=== PATIENT | male | born 1965 | race Caucasian/White ===

== ENCOUNTER 2022-05-18 10:32 | Emergency (ER) | payer OTHER, MEDICARE ==
[~2022-05-18] VITALS: Ht 165.1 cm; Wt 48.5 kg
[2022-05-18 10:40] VITALS: BP_SYST 86
--- NOTE | 2022-05-18 10:43 | NUR ---
Placed in room 03 . Placed on panel monitor, blood pressure machine and pulse oximeter. To gown for exam. Side rails up. Report given to GARRISON SOTO.
--- NOTE | 2022-05-18 10:55 | NUR ---
patient from home c/o diarhea for the last week, was in dialysis yesterday with low b/p and high b/s by f/s at home, place on still tender, will continue to monitor.
[2022-05-18] MEDS ORDERED: ONDANSETRON HCL 4 MG/2 ML VIAL IVP ONE (11:00)
[2022-05-18] MEDS ORDERED: NACL 0.9% 1,000 ML IV ONE (11:00)
--- NOTE | 2022-05-18 11:00 | NUR ---
edp at bedside for initial assessment with order roxy out.
--- NOTE | 2022-05-18 11:22 | NUR ---
patient taken to ct scan.
[2022-05-18 11:23] LABS: BASOPHILS % (AUTO) 0.7 % (0.0-2.0); EOSINOPHILS % (AUTO) 0.3 % (0.0-4.0); HEMATOCRIT 36.5 % (36-54); HEMOGLOBIN 11.9 g/dL (14.0-18.0); LYMPHOCYTES # (AUTO) 1.2 K/uL (1.0-5.5); LYMPHOCYTES % (AUTO) 23.1 % (20.5-51.5); MEAN CORPUSCULAR HEMOGLOBIN 31 pg (27-31); MEAN CORPUSCULAR HGB CONC 33 % (32-36); MEAN CORPUSCULAR VOLUME 96 fL (79.0-98.0); MONOCYTES # (AUTO) 0.4 K/uL (0.0-1.0); MONOCYTES % (AUTO) 6.8 % (1.7-9.3); NEUTROPHILS # (AUTO) 3.6 K/uL (1.8-7.7); NEUTROPHILS % (AUTO) 69.1 % (40.0-70.0); PLATELET COUNT (AUTO) 114 K/uL (130-430); RED BLOOD CELL COUNT(AUTO) 3.81 MIL/uL (4.2-6.2); RED CELL DISTRIBUTION WIDTH 18.2 % (9.0-15.0); WHITE BLOOD COUNT (AUTO) 5.2 K/uL (4.8-10.8)
[2022-05-18 11:36] LABS: CALCIUM 8.8 mg/dL (8.4-11.0); CREATININE 4.89 mg/dL (0.55-1.30)
[2022-05-18 11:40] LABS: TOTAL BILIRUBIN 0.7 mg/dL (0.0-1.0)
--- NOTE | 2022-05-18 12:35 | NUR ---
new patel #16 inserted tolerated well.
[2022-05-18 12:55] LABS: BILIRUBIN,URINE NEGATIVE (NEGATIVE); BLOOD, URINE 3+ (NEGATIVE); CLARITY/URINE TURBID (CLEAR); COLOR,URINE YELLOW (YELLOW); GLUCOSE,URINE NEGATIVE (NEGATIVE); KETONES,URINE TRACE (NEGATIVE); LEUKOCYTE ESTERASE ,URINE 3+ (NEGATIVE); NITRITE, URINE NEGATIVE (NEGATIVE); PH,URINE 6.5 (5.0-8.0); PROTEIN URINE 4+ (NEGATIVE); UROBILINOGEN,URINE 0.2 (0.2-1.0)
[2022-05-18 12:56] LABS: BACTERIA,URINE MANY /HPF (None Seen); RBC,URINE >100 /HPF (0-3); WBC,URINE >100 /HPF (0-3)
[2022-05-18] MEDS ORDERED: SSNOVOLOG SUBCUT (13:25)
--- NOTE | 2022-05-18 13:28 | NUR ---
EDP SPOKE TO [facility] REGARDING PATIENT STATUS FOR TRANSFER OR ADMISSION.
[2022-05-18] MEDS ORDERED: cefTRIAXone 1 GM IVPB PREMIX 50 ML IV ONE (13:30)
--- NOTE | 2022-05-18 14:59 | NUR ---
PT WILL BE GOING TO [facility] VIA BLS TRANSPORT. ACCEPTING PHYSICIAN IS Montserrat HUTSON. NUMBER FOR REPORT IS [phone]. ETA FOR [facility]NAGER [facility]AT[facility] IS 1600 WITH [facility].
--- NOTE | 2022-05-18 15:34 | NUR ---
REPORT GIVEN TO WOLF KEYES
--- NOTE | 2022-05-18 16:30 | NUR ---
2ND BOWEL MOVEMENT AND CLEANS.
[2022-05-18 16:43] VITALS: BP_SYST 108
--- NOTE | 2022-05-18 16:46 | NUR ---
Patient to be transferred to [facility]. Is being transferred due to higher level of care. Receiving facility has accepting physician and available space. ER physician has signed transfer form. Patient or responsible republican has agreed to transfer and signed form. Patient belongings inventoried and will be sent with patient. Copy of nursing notes, lab reports, EKG, Physicians Orders and X-rays to be sent with patient. Report called to RAHAT JI at receiving facility. Receiving physician is ERICKA. [facility] ambulance service has been called for transfer. ETA is 1600.
== END 2022-05-18 16:43 | disposition short-term general hospital (02) ==
LOC: SED 10:32
DX: N39.0 Urinary tract infection, site not specified (principal); K56.609 Unspecified intestinal obstruction, unspecified as to partial versus complete obstruction; R11.2 Nausea with vomiting, unspecified; I12.9 Hypertensive chronic kidney disease with stage 1 through stage 4 chronic kidney disease, or unspecified chronic kidney disease; N18.9 Chronic kidney disease, unspecified; R19.7 Diarrhea, unspecified; T83.098A Other mechanical complication of other urinary catheter, initial encounter; Z79.4 Long term (current) use of insulin; Z79.899 Other long term (current) drug therapy; Z20.822 Contact with and (suspected) exposure to COVID-19
CPT/HCPCS: 99285; 74176; 96365; 96361; 96375; 87426; 80053; 81000; 82962; 83690; 85025; 87040; 87086; 36415; 76376; J0696; J2405; J7030

== ENCOUNTER 2022-07-21 14:47 | Emergency (ER) | payer MEDICARE, OTHER ==
[~2022-07-21] VITALS: Ht 162.6 cm; Wt 49.9 kg
[~2022-07-21 14:47] MED LIST: SSNOVOLOG SUBCUT
[2022-07-21 15:00] VITALS: BP_SYST 130
[2022-07-21] MEDS ORDERED: ACETAMINOPHEN 500 MG TABLET PO ONE (15:45)
[2022-07-21] MEDS ORDERED: ONDANSETRON 4 MG ODT TAB PO ONE (15:45)
[2022-07-21 16:36] LABS: BILIRUBIN,URINE NEGATIVE (NEGATIVE); BLOOD, URINE 3+ (NEGATIVE); CLARITY/URINE CLOUDY (CLEAR); COLOR,URINE YELLOW (YELLOW); GLUCOSE,URINE 3+ (NEGATIVE); KETONES,URINE NEGATIVE (NEGATIVE); LEUKOCYTE ESTERASE ,URINE 3+ (NEGATIVE); NITRITE, URINE NEGATIVE (NEGATIVE); PROTEIN URINE 2+ (NEGATIVE); UROBILINOGEN,URINE 0.2 (0.2-1.0)
[2022-07-21 16:44] LABS: BASOPHILS # (AUTO) 0.1 K/uL (0.0-0.2); BASOPHILS % (AUTO) 1.2 % (0.0-2.0); EOSINOPHILS # (AUTO) 0.3 K/uL (0.0-0.4); EOSINOPHILS % (AUTO) 3.4 % (0.0-4.0); HEMATOCRIT 34.3 % (36-54); HEMOGLOBIN 11.4 g/dL (14.0-18.0); LYMPHOCYTES # (AUTO) 1.4 K/uL (1.0-5.5); LYMPHOCYTES % (AUTO) 17.4 % (20.5-51.5); MEAN CORPUSCULAR HEMOGLOBIN 33 pg (27-31); MEAN CORPUSCULAR HGB CONC 33 % (32-36); MEAN CORPUSCULAR VOLUME 98 fL (79.0-98.0); MONOCYTES # (AUTO) 0.6 K/uL (0.0-1.0); MONOCYTES % (AUTO) 7.2 % (1.7-9.3); NEUTROPHILS # (AUTO) 5.7 K/uL (1.8-7.7); NEUTROPHILS % (AUTO) 70.8 % (40.0-70.0); PLATELET COUNT (AUTO) 122 K/uL (130-430); RED BLOOD CELL COUNT(AUTO) 3.51 MIL/uL (4.2-6.2); WHITE BLOOD COUNT (AUTO) 8.1 K/uL (4.8-10.8)
[2022-07-21 16:46] LABS: ANION GAP 7 (5-15); CALCIUM 8.2 mg/dL (8.4-11.0); CHLORIDE 96 mmol/L (98-107); CREATININE 2.74 mg/dL (0.55-1.30); GFR AFRICAN AMERICAN 31 mL/min (>90); GLUCOSE 230 mg/dL (70-99); UREA NITROGEN, BLOOD 21 mg/dL (8-21)
[2022-07-21 16:48] LABS: RBC,URINE 20-50 /HPF (0-3); WBC,URINE >100 /HPF (0-3)
[2022-07-21 16:49] LABS: BACTERIA,URINE MODERATE /HPF (None Seen); MUCUS,URINE None Seen /LPF (None Seen)
[2022-07-21 16:53] LABS: ALANINE AMINOTRANSFERASE 128 U/L (12-78); ALBUMIN 3.2 g/dL (3.4-4.8); ASPARTATE AMINOTRANSFERASE 67 U/L (10-37); PHOSPHORUS 3.4 mg/dL (2.7-4.5); TOTAL BILIRUBIN 0.4 mg/dL (0.0-1.0)
[2022-07-21] MEDS ORDERED: cefTRIAXone 1 GM IVPB PREMIX 50 ML IV ONE (18:00)
[2022-07-21] MEDS ORDERED: CIPR500T5 PO (19:28)
[2022-07-21] MEDS ORDERED: ACET-2634 PO (19:28)
[2022-07-21] MEDS ORDERED: ONDA-8 TL (19:28)
[2022-07-21 22:26] VITALS: BP_SYST 130
== END 2022-07-21 22:26 | disposition home or self-care (01) ==
LOC: SED 14:47
DX: E11.22 Type 2 diabetes mellitus with diabetic chronic kidney disease (principal); R11.2 Nausea with vomiting, unspecified; R53.1 Weakness; I10 Essential (primary) hypertension; Z79.899 Other long term (current) drug therapy; Z20.822 Contact with and (suspected) exposure to COVID-19
CPT/HCPCS: 99285; 96365; 71045; 87426; 80053; 81000; 83880; 83735; 84100; 85025; 87086; 84484; 36415; 93005; J0696

== ENCOUNTER 2022-08-24 12:14 | Emergency (ER) | payer MEDICARE, OTHER ==
[~2022-08-24] VITALS: Ht 165.1 cm; Wt 49.9 kg
[~2022-08-24 12:14] MED LIST changes: +ACET-2634 PO; +CIPR500T5 PO; +ONDA-8 TL
[2022-08-24 12:26] VITALS: BP_SYST 134
[2022-08-24 12:56] LABS: BASOPHILS # (AUTO) 0.1 K/uL (0.0-0.2); BASOPHILS % (AUTO) 1.3 % (0.0-2.0); EOSINOPHILS # (AUTO) 0.1 K/uL (0.0-0.4); HEMATOCRIT 35.1 % (36-54); HEMOGLOBIN 11.5 g/dL (14.0-18.0); LYMPHOCYTES # (AUTO) 1.1 K/uL (1.0-5.5); LYMPHOCYTES % (AUTO) 14.2 % (20.5-51.5); MEAN CORPUSCULAR HEMOGLOBIN 31 pg (27-31); MEAN CORPUSCULAR HGB CONC 33 % (32-36); MEAN CORPUSCULAR VOLUME 96 fL (79.0-98.0); MONOCYTES # (AUTO) 0.6 K/uL (0.0-1.0); NEUTROPHILS # (AUTO) 5.7 K/uL (1.8-7.7); NEUTROPHILS % (AUTO) 74.5 % (40.0-70.0); PLATELET COUNT (AUTO) 227 K/uL (130-430); RED BLOOD CELL COUNT(AUTO) 3.65 MIL/uL (4.2-6.2); RED CELL DISTRIBUTION WIDTH 15.6 % (9.0-15.0); WHITE BLOOD COUNT (AUTO) 7.6 K/uL (4.8-10.8)
[2022-08-24 13:11] LABS: ANION GAP 13 (5-15); CALCIUM 7.4 mg/dL (8.4-11.0); CHLORIDE 101 mmol/L (98-107); CREATININE 4.11 mg/dL (0.55-1.30); GFR AFRICAN AMERICAN 20 mL/min (>90); GLUCOSE 155 mg/dL (70-99); UREA NITROGEN, BLOOD 40 mg/dL (8-21)
[2022-08-24 13:16] LABS: CLARITY/URINE TURBID (CLEAR); COLOR,URINE YELLOW (YELLOW); PH,URINE 6.5 (5.0-8.0)
[2022-08-24 13:17] LABS: BILIRUBIN,URINE NEGATIVE (NEGATIVE); BLOOD, URINE 2+ (NEGATIVE); GLUCOSE,URINE 3+ (NEGATIVE); KETONES,URINE NEGATIVE (NEGATIVE); LEUKOCYTE ESTERASE ,URINE 2+ (NEGATIVE); NITRITE, URINE POSITIVE (NEGATIVE); PROTEIN URINE 3+ (NEGATIVE); UROBILINOGEN,URINE 0.2 (0.2-1.0)
[2022-08-24 13:26] LABS: RBC,URINE >100 /HPF (0-3); WBC,URINE >100 /HPF (0-3)
[2022-08-24 13:27] LABS: BACTERIA,URINE MANY /HPF (None Seen)
[2022-08-24 13:27] LABS: ALANINE AMINOTRANSFERASE 141 U/L (12-78); ALBUMIN 3.5 g/dL (3.4-4.8); ASPARTATE AMINOTRANSFERASE 74 U/L (10-37); TOTAL BILIRUBIN 0.3 mg/dL (0.0-1.0)
[2022-08-24] MEDS ORDERED: cefTRIAXone 1 GM in LIDOCAINE 1%, 20 ML MDV 2.1 ML IM ONE (13:30)
[2022-08-24 13:37] LABS: ACETONE, SERUM NEGATIVE (NEGATIVE)
[2022-08-24] MEDS ORDERED: NITR-85 PO (13:43)
[2022-08-24 14:37] VITALS: BP_SYST 136
== END 2022-08-24 14:35 | disposition home or self-care (01) ==
LOC: SED 12:14
DX: N39.0 Urinary tract infection, site not specified (principal); R53.1 Weakness; E11.649 Type 2 diabetes mellitus with hypoglycemia without coma; E16.2 Hypoglycemia, unspecified; I10 Essential (primary) hypertension; Z79.899 Other long term (current) drug therapy
CPT/HCPCS: 99285; 96374; 71045; 80053; 81000; 82009; 82550; 85025; 87086; 84484; 36415; 93005; 83605; J0696; J2001

== ENCOUNTER 2022-09-05 10:38 | Emergency (ER) | payer MEDICARE, OTHER ==
[~2022-09-05] VITALS: Ht 162.6 cm; Wt 49.9 kg
[~2022-09-05 10:38] MED LIST changes: +NITR-85 PO
[2022-09-05 10:40] VITALS: BP_SYST 143
[2022-09-05 11:13] LABS: HEMATOCRIT 37.3 % (36-54); MEAN CORPUSCULAR HEMOGLOBIN 31 pg (27-31); MEAN CORPUSCULAR HGB CONC 32 % (32-36); MEAN CORPUSCULAR VOLUME 96 fL (79.0-98.0); PLATELET COUNT (AUTO) 173 K/uL (130-430); RED BLOOD CELL COUNT(AUTO) 3.88 MIL/uL (4.2-6.2); RED CELL DISTRIBUTION WIDTH 16.1 % (9.0-15.0); WHITE BLOOD COUNT (AUTO) 6.2 K/uL (4.8-10.8)
[2022-09-05 11:28] LABS: CALCIUM 7.5 mg/dL (8.4-11.0); CREATININE 3.74 mg/dL (0.55-1.30)
[2022-09-05 11:35] LABS: ALBUMIN 3.5 g/dL (3.4-4.8); TOTAL BILIRUBIN 0.3 mg/dL (0.0-1.0)
[2022-09-05 11:45] LABS: BILIRUBIN,URINE NEGATIVE (NEGATIVE); BLOOD, URINE 2+ (NEGATIVE); CLARITY/URINE CLOUDY (CLEAR); COLOR,URINE YELLOW (YELLOW); GLUCOSE,URINE 3+ (NEGATIVE); KETONES,URINE NEGATIVE (NEGATIVE); LEUKOCYTE ESTERASE ,URINE 2+ (NEGATIVE); NITRITE, URINE NEGATIVE (NEGATIVE); PROTEIN URINE 2+ (NEGATIVE); UROBILINOGEN,URINE 0.2 (0.2-1.0)
[2022-09-05 11:58] LABS: BASOPHILS % (MANUAL) 0 % (0-2); EOSINOPHILS % (MANUAL) 9 % (0-7); LYMPHOCYTES % (MANUAL) 35 % (20-46); MONOCYTES % (MANUAL) 12 % (0-11)
[2022-09-05 12:02] LABS: BACTERIA,URINE FEW /HPF (None Seen); RBC,URINE 20-50 /HPF (0-3); WBC,URINE >100 /HPF (0-3)
[2022-09-05 13:15] VITALS: BP_SYST 143
== END 2022-09-05 14:06 | disposition home or self-care (01) ==
LOC: SED 10:38
DX: E11.649 Type 2 diabetes mellitus with hypoglycemia without coma (principal); I10 Essential (primary) hypertension; Z79.899 Other long term (current) drug therapy
CPT/HCPCS: 36415; 71045; 80053; 81000; 82962; 85007; 85027; 87086; 93005; 99285

== ENCOUNTER 2022-09-29 09:54 | Emergency (ER) | payer MEDICARE, OTHER ==
[~2022-09-29] VITALS: Ht 162.6 cm; Wt 52.2 kg
--- NOTE | 2022-09-29 10:00 | NUR ---
PT BIBA AWAKE AND ALERT AOX4, NO SOB. PT C/O GENWEAK SINCE THURSDAY AFTER HIS DIAYLSIS. PT HAS AN APPONTMENT TODAY FOR DIAYYSIS BUT MISSED IT AT 1000. PT C/O HEAD, BLURRY VISION. PT DENIES N/V. PT HAS HX OF CKD, HTN. HLD, DM2.
--- NOTE | 2022-09-29 10:01 | NUR ---
MD DR ROBERTSON AT BEDSIDE
[2022-09-29] MEDS ORDERED: ASPIRIN 81 MG TAB.CHEW PO ONE (10:15)
--- NOTE | 2022-09-29 10:24 | NUR ---
COVID AND INFLUENZA SWABS COLLECTED AND SENT TO LAB.
[2022-09-29 11:01] VITALS: BP_SYST 131
[2022-09-29 11:08] LABS: BASOPHILS # (AUTO) 0.1 K/uL (0.0-0.2); EOSINOPHILS # (AUTO) 0.2 K/uL (0.0-0.4); EOSINOPHILS % (AUTO) 1.3 % (0.0-4.0); HEMATOCRIT 34.4 % (36-54); HEMOGLOBIN 11.3 g/dL (14.0-18.0); MEAN CORPUSCULAR HEMOGLOBIN 32 pg (27-31); MEAN CORPUSCULAR HGB CONC 33 % (32-36); MEAN CORPUSCULAR VOLUME 96 fL (79.0-98.0); MONOCYTES # (AUTO) 1.1 K/uL (0.0-1.0); MONOCYTES % (AUTO) 8.6 % (1.7-9.3); NEUTROPHILS # (AUTO) 9.8 K/uL (1.8-7.7); NEUTROPHILS % (AUTO) 74.1 % (40.0-70.0); PLATELET COUNT (AUTO) 160 K/uL (130-430); RED BLOOD CELL COUNT(AUTO) 3.59 MIL/uL (4.2-6.2); RED CELL DISTRIBUTION WIDTH 15.6 % (9.0-15.0); WHITE BLOOD COUNT (AUTO) 13.3 K/uL (4.8-10.8)
[2022-09-29 11:16] LABS: ANION GAP 12 (5-15); CALCIUM 7.4 mg/dL (8.4-11.0); CHLORIDE 97 mmol/L (98-107); CREATININE 4.97 mg/dL (0.55-1.30); GFR AFRICAN AMERICAN 16 mL/min (>90); GLUCOSE 108 mg/dL (70-99); UREA NITROGEN, BLOOD 57 mg/dL (8-21)
[2022-09-29 11:24] LABS: ALANINE AMINOTRANSFERASE 77 U/L (12-78); ALBUMIN 3.4 g/dL (3.4-4.8); ASPARTATE AMINOTRANSFERASE 44 U/L (10-37); TOTAL BILIRUBIN 0.4 mg/dL (0.0-1.0)
[2022-09-29] MEDS ORDERED: cefTRIAXone 1 GM IVPB PREMIX 50 ML IV ONE (12:30)
--- NOTE | 2022-09-29 13:10 | NUR ---
Spoke with patient at this time. Patient was changed after having a very large, brandon collored BM at this time.
--- NOTE | 2022-09-29 13:35 | NUR ---
Patient sleeping at this time. MD awaiting ultrasound results before re evaluating patient for final disposition.
--- NOTE | 2022-09-29 14:12 | NUR ---
Patient had additional labs drawn and urine was taken to the lab at this time by GARRISON KRAUS.
[2022-09-29 14:29] LABS: BILIRUBIN,URINE NEGATIVE (NEGATIVE); BLOOD, URINE 2+ (NEGATIVE); CLARITY/URINE CLOUDY (CLEAR); COLOR,URINE YELLOW (YELLOW); GLUCOSE,URINE 1+ (NEGATIVE); KETONES,URINE NEGATIVE (NEGATIVE); LEUKOCYTE ESTERASE ,URINE 3+ (NEGATIVE); NITRITE, URINE NEGATIVE (NEGATIVE); PROTEIN URINE 2+ (NEGATIVE); UROBILINOGEN,URINE 0.2 (0.2-1.0)
[2022-09-29 14:43] LABS: BACTERIA,URINE MODERATE /HPF (None Seen); MUCUS,URINE None Seen /LPF (None Seen); RBC,URINE 0-3 /HPF (0-3); WBC,URINE >100 /HPF (0-3)
[2022-09-29 16:10] VITALS: BP_SYST 173
--- NOTE | 2022-09-29 16:14 | NUR ---
Patient to be transferred to [facility]. Is being transferred due to higher level of care. Receiving facility has accepting physician, Dr. Witt and available space. ER physician has signed transfer form. Patient or responsible constitution party has agreed to transfer and signed form. Patient belongings inventoried and will be sent with patient. Copy of nursing notes, lab reports, EKG, Physicians Orders and X-rays to be sent with patient. Report called to GARRISON Uribe at receiving facility in ED. Receiving physician is Dr. Stanislav Witt. [facility] ambulance service has been called for transfer. ETA is 1615 and Jojo was made aware of the ambulances departure time.
== END 2022-09-29 16:14 | disposition short-term general hospital (02) ==
LOC: SED 09:54
DX: R53.1 Weakness (principal); I13.2 Hypertensive heart and chronic kidney disease with heart failure and with stage 5 chronic kidney disease, or end stage renal disease; E11.22 Type 2 diabetes mellitus with diabetic chronic kidney disease; N18.6 End stage renal disease; D72.829 Elevated white blood cell count, unspecified; Z79.899 Other long term (current) drug therapy; Z20.822 Contact with and (suspected) exposure to COVID-19
CPT/HCPCS: 99285; 96365; 71045; 87426; 80053; 81000; 83880; 85025; 87040; 87086; 84484; 36415; 93005; 83605; 87804 ×2; J0696

== ENCOUNTER 2022-10-18 16:17 | Emergency (ER) | payer MEDICARE, OTHER ==
[~2022-10-18] VITALS: Ht 165.1 cm; Wt 68.0 kg
--- NOTE | 2022-10-18 16:17 | NUR ---
RECEIVED PT FROM ARI JI. PT ADY ACLYu FOR ALOC. PT WAS UP COOKING LUNCH AT APPROX 12:00 IS LAST KNOWN WELL TIME. PT RESPONDS SOME VERBAL COMMANDS, MOANS AND REPOSITIONS. PERRL. RESP E/U. ON R/A O2 SAT 98%. RESP SHALLOW, UNLABORED. TELEMONITOR SHOWS SINUS TOMA, HR IN THE 50S. ABDOMEN SOFT, NONTENDER, PT INCONTINENT WITH DIAPER PRESENT. PT HAS LEFT UPPER CHEST PORTACATH IN PLACE COVERED WITH CDI DRESSING. RIGHT LOWER LEG IN CAST. SIDERAILS UP X2.
--- NOTE | 2022-10-18 16:25 | NUR ---
EKG OBTAINED, URINE, RASHEL OBTAINED AND TAKEN TO LAB.
[2022-10-18 16:27] VITALS: BP_SYST 115
[2022-10-18] MEDS ORDERED: ONDANSETRON HCL 4 MG/2 ML VIAL IVP ONE (16:30)
[2022-10-18] MEDS ORDERED: DEXTROSE 50% JECT 50 ML DISP.SYRIN IVP ONE (16:30)
--- NOTE | 2022-10-18 16:30 | NUR ---
# 20 gauge angiocath placed to RAC. Use of asceptic technique. Opsite placed over site. Blood return noted. Blood for lab drawn from site. Flushed with 10 cc of normal saline. No evidence of infiltration noted. Patient tolerated well.
--- NOTE | 2022-10-18 16:30 | NUR ---
BS 78 D50 IVP GIVEN. ZOFRAN 4MG IVP GIVEN.
--- NOTE | 2022-10-18 16:37 | NUR ---
D50 IVP GIVEN FOR BS 78. ZOFRAN 4MG IVP GIVEN.
[2022-10-18 16:40] LABS: BILIRUBIN,URINE NEGATIVE (NEGATIVE); BLOOD, URINE 2+ (NEGATIVE); CLARITY/URINE CLEAR (CLEAR); COLOR,URINE YELLOW (YELLOW); GLUCOSE,URINE 2+ (NEGATIVE); KETONES,URINE NEGATIVE (NEGATIVE); NITRITE, URINE NEGATIVE (NEGATIVE); PROTEIN URINE 2+ (NEGATIVE); UROBILINOGEN,URINE 0.2 (0.2-1.0)
[2022-10-18 16:48] LABS: LEUKOCYTE ESTERASE ,URINE 1+ (NEGATIVE)
[2022-10-18 16:49] LABS: BACTERIA,URINE FEW /HPF (None Seen); MUCUS,URINE None Seen /LPF (None Seen); RBC,URINE 0-3 /HPF (0-3)
[2022-10-18 16:59] LABS: ANION GAP 14 (5-15); CALCIUM 7.6 mg/dL (8.4-11.0); CHLORIDE 98 mmol/L (98-107); CREATININE 3.36 mg/dL (0.55-1.30); GFR AFRICAN AMERICAN 25 mL/min (>90); GLUCOSE 80 mg/dL (70-99); UREA NITROGEN, BLOOD 45 mg/dL (8-21)
--- NOTE | 2022-10-18 17:00 | NUR ---
# 20 gauge angiocath placed to LFA. Use of asceptic technique. Opsite placed over site. Blood return noted. Flushed with 10 cc of normal saline. No evidence of infiltration noted. Patient tolerated well.
[2022-10-18 17:13] LABS: ALANINE AMINOTRANSFERASE 107 U/L (12-78); ALBUMIN 3.7 g/dL (3.4-4.8); ASPARTATE AMINOTRANSFERASE 48 U/L (10-37); INR 1.1 (0.80-1.20); PROTHROMBIN TIME 11.1 SECS (9.5-12.5); THYROID STIMULATING HORMONE 4.76 uIu/mL (0.34-4.82); TOTAL BILIRUBIN 0.3 mg/dL (0.0-1.0)
[2022-10-18] MEDS ORDERED: cefTRIAXone 1 GM in D5W 50 ML IV ONE (17:15)
[2022-10-18 17:22] LABS: ALCOHOL, BLOOD < 3 mg/dL (<10)
[2022-10-18 17:29] LABS: BASOPHILS # (AUTO) 0.1 K/uL (0.0-0.2); EOSINOPHILS % (AUTO) 0.6 % (0.0-4.0); HEMATOCRIT 32.3 % (36-54); HEMOGLOBIN 10.7 g/dL (14.0-18.0); LYMPHOCYTES # (AUTO) 0.8 K/uL (1.0-5.5); LYMPHOCYTES % (AUTO) 10.9 % (20.5-51.5); MEAN CORPUSCULAR HEMOGLOBIN 33 pg (27-31); MEAN CORPUSCULAR HGB CONC 33 % (32-36); MEAN CORPUSCULAR VOLUME 99 fL (79.0-98.0); MONOCYTES # (AUTO) 0.3 K/uL (0.0-1.0); MONOCYTES % (AUTO) 4.4 % (1.7-9.3); NEUTROPHILS # (AUTO) 5.8 K/uL (1.8-7.7); NEUTROPHILS % (AUTO) 83.1 % (40.0-70.0); PLATELET COUNT (AUTO) 116 K/uL (130-430); RED BLOOD CELL COUNT(AUTO) 3.27 MIL/uL (4.2-6.2); RED CELL DISTRIBUTION WIDTH 15.4 % (9.0-15.0)
[2022-10-18] MEDS ORDERED: cefTRIAXone 1 GM VIAL ONE ×2 (17:29→17:32)
[2022-10-18] MEDS ORDERED: CALCIUM GLUC 1 GM/100ML-NACL 100 ML IV ONE (17:30)
--- NOTE | 2022-10-18 17:38 | NUR ---
CULTURES OBTAINED ROCEPHIN 1GM IVPB INITIATED, CALCIUM GLOCONATE IVPB INITIATED. PT RESPONSIVE AT THIS TIME, ABLE TO SPEAK AND FOLLOW COMMANDS.
[2022-10-18] MEDS ORDERED: ATOR40TA68 PO (17:46)
[2022-10-18] MEDS ORDERED: CALC667C4 PO (17:46)
[2022-10-18] MEDS ORDERED: HYDR2TAB7 PO (17:46)
[2022-10-18] MEDS ORDERED: AMLO5TAB92 PO (17:46)
[2022-10-18] MEDS ORDERED: FURO80TA3 PO (17:46)
[2022-10-18] MEDS ORDERED: GABA-529 PO (17:46)
[2022-10-18] MEDS ORDERED: HYDR-3917 PO (17:46)
[2022-10-18] MEDS ORDERED: ERGO1250 PO (17:46)
[2022-10-18 17:56] LABS: BARBITURATE, URINE NEGATIVE (NEG <=200); BENZODIAZEPINE, URINE NEGATIVE (NEG <=150); CANNABINOID, URINE NEGATIVE (NEG <=50); COCAINE, URINE NEGATIVE (NEG <=150); METHAMPHETAMINES SCREEN,URINE NEGATIVE (NEG <=500); OPIATE, URINE POSITIVE (NEG <=100); PHENCYCLIDINE SCREEN,URINE NEGATIVE (NEG <=25); UR TRICYCLIC ANTIDEPRESSANTS NEGATIVE (NEG <=300); URINE AMPHETAMINE NEGATIVE (NEG <=500); URINE METHADONE NEGATIVE (NEG <=200); URINE OXYCODONE SCREEN NEGATIVE (NEG <=100); URINE PROPOXYPHENE SCREEN NEGATIVE (NEG <=300)
--- NOTE | 2022-10-18 18:23 | NUR ---
DR. WALSH AT BEDSIDE TO DISCUSS POC.
--- NOTE | 2022-10-18 18:37 | NUR ---
Medication reconciliation completed with information provided by GARRISON LOPEZ. Any prior medication reconciliation on file was reviewed and corrected.
--- NOTE | 2022-10-18 19:18 | NUR ---
PT ENDORSED TO GARRISON MADRID. ALL QUESTIONS AND CONCERNS ADDRESSED.
--- NOTE | 2022-10-18 19:30 | NUR ---
assumed patient care at this time, patient is alert and oriented x 3, no signs of distress noted
--- NOTE | 2022-10-18 19:56 | NUR ---
report given to cezar soto of [facility] , eta greens picker at 1426, als: lisette, er to er transfer
--- NOTE | 2022-10-18 22:31 | NUR ---
PATIENT REPORT GIVEN TO [facility], TRANSFER REPORT SIGNED,Patient to be transferred to [facility]. Is being transferred due to higher level of care. Receiving facility has accepting physician and available space. ER physician has signed transfer form. Patient or responsible constitution party has agreed to transfer and signed form. Patient belongings inventoried and will be sent with patient. Copy of nursing notes, lab reports, EKG, Physicians Orders and X-rays to be sent with patient. Report called to KATHERIN at receiving facility. Receiving physician is APOLLO. [facility] ambulance service has been called for transfer. ETA is 0129.
[2022-10-18 22:49] VITALS: BP_SYST 112
== END 2022-10-18 22:49 | disposition short-term general hospital (02) ==
LOC: SED 16:17
DX: R41.82 Altered mental status, unspecified (principal); N39.0 Urinary tract infection, site not specified; T40.2X5A Adverse effect of other opioids, initial encounter; I12.0 Hypertensive chronic kidney disease with stage 5 chronic kidney disease or end stage renal disease; E11.22 Type 2 diabetes mellitus with diabetic chronic kidney disease; N18.6 End stage renal disease; R00.1 Bradycardia, unspecified; Z79.4 Long term (current) use of insulin; Z79.899 Other long term (current) drug therapy
CPT/HCPCS: 99291; 96365; 70450; 71045; 96375; 80307; 80053; 82140; 83880; 84439; 84443; 85025; 85610; 85730; 87040; 87086; 84484; 36415; 93005; 76376; 36600; 82803; 96368; 99292; 83605; 81000; G0482; J0696; J2405; 99281

== ENCOUNTER 2023-02-26 17:56 | Inpatient (IN) | payer MEDICARE, OTHER ==
[~2023-02-26] VITALS: Ht 162.6 cm; Wt 51.7 kg
[~2023-02-26 17:56] MED LIST changes: +AMLO5TAB92 PO; +ATOR40TA68 PO; +CALC667C4 PO; +ERGO1250 PO; +FURO80TA3 PO; +GABA-529 PO; +HYDR-3917 PO; +HYDR2TAB7 PO
[2023-02-26 18:10] VITALS: BP_SYST 117; PULSE 84; RESP 19; TEMP 98; O2SAT 98
[2023-02-26] MEDS ORDERED: LORazepam 2 MG/ML VIAL IVP ONE (18:30)
[2023-02-26] MEDS ORDERED: NACL 0.9% 2,000 ML IV ONE (18:30)
[2023-02-26 19:37] LABS: INR 1.1 (0.80-1.20); PROTHROMBIN TIME 11.5 SECS (9.5-12.5)
[2023-02-26 19:40] LABS: BASOPHILS # (AUTO) 0.1 K/uL (0.0-0.2); EOSINOPHILS # (AUTO) 0.1 K/uL (0.0-0.4); EOSINOPHILS % (AUTO) 1.7 % (0.0-4.0); HEMATOCRIT 28.5 % (36-54); HEMOGLOBIN 9.9 g/dL (14.0-18.0); LYMPHOCYTES # (AUTO) 1.7 K/uL (1.0-5.5); LYMPHOCYTES % (AUTO) 34.5 % (20.5-51.5); MEAN CORPUSCULAR HEMOGLOBIN 35 pg (27-31); MEAN CORPUSCULAR HGB CONC 35 % (32-36); MEAN CORPUSCULAR VOLUME 102 fL (79.0-98.0); MONOCYTES # (AUTO) 0.3 K/uL (0.0-1.0); MONOCYTES % (AUTO) 6.1 % (1.7-9.3); NEUTROPHILS # (AUTO) 2.8 K/uL (1.8-7.7); NEUTROPHILS % (AUTO) 56.7 % (40.0-70.0); PLATELET COUNT (AUTO) 122 K/uL (130-430); RED CELL DISTRIBUTION WIDTH 17.7 % (9.0-15.0)
[2023-02-26 19:55] LABS: ALANINE AMINOTRANSFERASE 50 U/L (12-78); ALBUMIN 3.2 g/dL (3.4-4.8); AMYLASE 12 U/L (0-100); ANION GAP 14 (5-15); ASPARTATE AMINOTRANSFERASE 52 U/L (10-37); CALCIUM 8.6 mg/dL (8.4-11.0); CARBON DIOXIDE 25 mmol/L (23-29); CHLORIDE 92 mmol/L (98-107); CREATININE 3.11 mg/dL (0.55-1.30); GFR AFRICAN AMERICAN 27 mL/min (>90); GLUCOSE 367 mg/dL (74-106); LIPASE 6 U/L (16-77); SODIUM SERUM 131 mmol/L (136-145); TOTAL BILIRUBIN 0.6 mg/dL (0.0-1.0); TOTAL PROTEIN, SERUM 6.5 g/dL (6.4-8.3); UREA NITROGEN, BLOOD 14 mg/dL (8-21)
[2023-02-26] MEDS ORDERED: ONDANSETRON HCL 4 MG/2 ML VIAL IVP ONE (20:00)
[2023-02-26 20:13] LABS: GFR NON AFRICAN-AMERICAN 22 mL/min (>90)
[2023-02-26 20:15] LABS: POTASSIUM 2.1 mmol/L (3.5-5.1)
[2023-02-26] MEDS ORDERED: POTASSIUM CHLORIDE 20 MEQ/PKT PACKET PO ONE (20:15)
[2023-02-26 20:16] LABS: ALCOHOL, BLOOD 313 mg/dL (<10)
[2023-02-26 20:30] LABS: ACETONE, SERUM NEGATIVE (NEGATIVE)
[2023-02-26] MEDS ORDERED: DOCUSATE SODIUM 100 MG CAPSULE PO PRN (21:15)
[2023-02-26] MEDS ORDERED: INSULIN LISPRO SLIDING SCALE 100 UNITS/ML, 3 ML VIAL (humaLOG) SUBCUT PRN (21:15)
[2023-02-26] MEDS ORDERED: ZOLPIDEM TARTRATE 5 MG TABLET PO PRN (21:15)
[2023-02-26] MEDS ORDERED: MAGNESIUM SULFATE 50 ML IV PRN (21:15)
[2023-02-26] MEDS ORDERED: LORazepam 2 MG/ML VIAL IVP PRN (21:15)
[2023-02-26] MEDS ORDERED: ONDANSETRON HCL 4 MG/2 ML VIAL IVP PRN (21:15)
[2023-02-26] MEDS ORDERED: POTASSIUM CHLORIDE 20 MEQ TAB.PRT.SR PO PRN (21:15)
[2023-02-26] MEDS ORDERED: MORPHINE 2 MG/ML INJ. SYRINGE IVP PRN ×2 (21:15)
[2023-02-26] MEDS ORDERED: DEXTROSE 50% JECT 50 ML DISP.SYRIN IVP PRN (21:15)
[2023-02-26] MEDS ORDERED: MUPIROCIN 2% TOPICAL OINTMENT 22 GM NS PRN (21:15)
[2023-02-26] MEDS ORDERED: NON-FORMULARY MEDICATION (Ergocalciferol (Vitamin D2) (Vitamin D2) 1 CAP) PO SCH (21:15)
[2023-02-26] MEDS ORDERED: FLUMAZENIL 0.1 MG/ML IVP ONE ×2 (21:29→21:30)
[2023-02-26] MEDS ORDERED: ACETAMINOPHEN 500 MG TABLET PO PRN ×3 (21:30)
[2023-02-26] MEDS ORDERED: INSULIN NPH/REGULAR 70-30, 100 UNITS/ML, 3 ML VIAL SUBCUT ONE (21:30)
[2023-02-26 22:06] LABS: BLOOD GAS BASE EXCESS -4.6 mmol/L (-3.0-3.0); BLOOD GAS HCO3 21.2 mmol/L (21.0-27.0); BLOOD GAS PCO2 41.9 mmHg (32.0-45.0); BLOOD GAS PH 7.322 (7.350-7.450); BLOOD GAS PO2 101.8 mmHg (75.0-100.0)
[2023-02-26 22:20] VITALS: BP_SYST 119; PULSE 55; RESP 18; TEMP 98.4; O2SAT 99
[2023-02-27 05:19] LABS: EOSINOPHILS # (AUTO) 0.1 K/uL (0.0-0.4); EOSINOPHILS % (AUTO) 1.7 % (0.0-4.0); HEMATOCRIT 35.3 % (36-54); HEMOGLOBIN 11.5 g/dL (14.0-18.0); LYMPHOCYTES # (AUTO) 1.8 K/uL (1.0-5.5); LYMPHOCYTES % (AUTO) 37.4 % (20.5-51.5); MEAN CORPUSCULAR HEMOGLOBIN 33 pg (27-31); MEAN CORPUSCULAR HGB CONC 33 % (32-36); MEAN CORPUSCULAR VOLUME 100 fL (79.0-98.0); MONOCYTES # (AUTO) 0.4 K/uL (0.0-1.0); MONOCYTES % (AUTO) 7.5 % (1.7-9.3); NEUTROPHILS # (AUTO) 2.5 K/uL (1.8-7.7); NEUTROPHILS % (AUTO) 52.4 % (40.0-70.0); PLATELET COUNT (AUTO) 140 K/uL (130-430); RED BLOOD CELL COUNT(AUTO) 3.51 MIL/uL (4.2-6.2); RED CELL DISTRIBUTION WIDTH 17.9 % (9.0-15.0); WHITE BLOOD COUNT (AUTO) 4.7 K/uL (4.8-10.8)
[2023-02-27 05:35] LABS: BILIRUBIN,DIRECT 0.2 mg/dL (0.0-0.3); CALCIUM 8.3 mg/dL (8.4-11.0); CREATININE 2.98 mg/dL (0.55-1.30); TOTAL BILIRUBIN 0.4 mg/dL (0.0-1.0); TOTAL PROTEIN, SERUM 6.5 g/dL (6.4-8.3)
[2023-02-27 06:31] LABS: POTASSIUM 2.4 mmol/L (3.5-5.1)
[2023-02-27 06:53] LABS: BILIRUBIN,URINE NEGATIVE (NEGATIVE); BLOOD, URINE 2+ (NEGATIVE); CLARITY/URINE CLOUDY (CLEAR); COLOR,URINE YELLOW (YELLOW); GLUCOSE,URINE 2+ (NEGATIVE); KETONES,URINE NEGATIVE (NEGATIVE); LEUKOCYTE ESTERASE ,URINE 2+ (NEGATIVE); NITRITE, URINE NEGATIVE (NEGATIVE); PROTEIN URINE 1+ (NEGATIVE); UROBILINOGEN,URINE 0.2 (0.2-1.0)
[2023-02-27 07:04] LABS: BACTERIA,URINE MANY /HPF (None Seen); MUCUS,URINE 1+ /LPF (None Seen); WBC,URINE 20-50 /HPF (0-3)
[2023-02-27 08:00] VITALS: BP_SYST 111; PULSE 55; RESP 15; TEMP 97.5; O2SAT 100
[2023-02-27] MEDS ORDERED: POTASSIUM CHLORIDE 20 MEQ/PKT PACKET PO ONE (08:30)
[2023-02-27] MEDS ORDERED: NITR-85 PO (08:39)
[2023-02-27] MEDS ORDERED: FUROSEMIDE 80 MG TABLET PO SCH (09:00)
[2023-02-27] MEDS ORDERED: chlordiazePOXIDE HCL 25 MG CAPSULE PO SCH (09:00)
[2023-02-27] MEDS ORDERED: cefTRIAXone 1 GM in D5W 50 ML IV SCH (09:00)
[2023-02-27] MEDS ORDERED: HEPARIN SODIUM,PORCINE 5,000 UNITS/ML VIAL SUBCUT SCH (09:00)
[2023-02-27] MEDS ORDERED: GABAPENTIN 100 MG CAPSULE PO SCH (09:00)
[2023-02-27] MEDS ORDERED: INSULIN NPH/REGULAR 70-30, 100 UNITS/ML, 3 ML VIAL SUBCUT SCH (09:00)
[2023-02-27] MEDS ORDERED: CALCIUM ACETATE 667 MG CAP PO SCH (09:00)
[2023-02-27 12:00] VITALS: BP_SYST 122; PULSE 56; RESP 16; TEMP 97.6; O2SAT 100
[2023-02-27] MEDS ORDERED: POTASSIUM CHLORIDE 20 MEQ TAB.PRT.SR PO ONE (12:15)
[2023-02-27 12:23] VITALS: BP_SYST 122; PULSE 56; RESP 15; TEMP 97.6; O2SAT 100
[2023-02-27] MEDS ORDERED: ATORVASTATIN 20 MG TABLET PO SCH (21:00)
== END 2023-02-27 14:00 | disposition home or self-care (01) | DRG 56 ==
LOC: SED 17:56 → STU 21:09
PROVIDERS: ADMIT General Practice; ATTEND General Practice
DX: G31.2 Degeneration of nervous system due to alcohol (principal); G92.9 Unspecified toxic encephalopathy; N17.0 Acute kidney failure with tubular necrosis; N18.6 End stage renal disease; N39.0 Urinary tract infection, site not specified; I13.2 Hypertensive heart and chronic kidney disease with heart failure and with stage 5 chronic kidney disease, or end stage renal disease; E87.1 Hypo-osmolality and hyponatremia; E87.20 Acidosis, unspecified; E87.6 Hypokalemia; F10.129 Alcohol abuse with intoxication, unspecified; Y90.9 Presence of alcohol in blood, level not specified; E78.5 Hyperlipidemia, unspecified; E11.40 Type 2 diabetes mellitus with diabetic neuropathy, unspecified; I50.9 Heart failure, unspecified; N13.9 Obstructive and reflux uropathy, unspecified; E11.22 Type 2 diabetes mellitus with diabetic chronic kidney disease; N40.1 Benign prostatic hyperplasia with lower urinary tract symptoms; Z63.4 Disappearance and death of family member; Z79.4 Long term (current) use of insulin; Z86.73 Personal history of transient ischemic attack (TIA), and cerebral infarction without residual deficits; Z87.440 Personal history of urinary (tract) infections; Z99.2 Dependence on renal dialysis
CPT/HCPCS: 36415; 36600; 70450-TC; 71045; 76376; 80048; 80053; 80076; 81000; 81001; 81015; 82009; 82140; 82150; 82803; 82962; 83037; 83605; 83690; 83735; 84132; 85025; 85610-TC; 85730-TC; 93005; 93306; 96361; 96374; 96375; 99285; G0378; G0482; J0696; J1644; J1815; J2060; J2405; J3490; J7060

== ENCOUNTER 2023-03-10 15:27 | Emergency (ER) | payer MEDICARE, OTHER ==
[~2023-03-10] VITALS: Ht 172.7 cm; Wt 68.9 kg
[2023-03-10 16:04] VITALS: BP_SYST 92; PULSE 71; RESP 20; TEMP 98.1; O2SAT 100
[2023-03-10] MEDS ORDERED: INSU100V SUBCUT (16:33)
[2023-03-10] MEDS ORDERED: MIDO2.5T PO (16:33)
[2023-03-10] MEDS ORDERED: INSU100V9 SQ (16:33)
[2023-03-10] MEDS ORDERED: MORPHINE 4 MG INJ. 4 MG/ML VIAL IVP ONE ×3 (17:00→23:15)
[2023-03-10 17:21] LABS: ALANINE AMINOTRANSFERASE 44 U/L (12-78); ALBUMIN 3.4 g/dL (3.4-4.8); ANION GAP 17 (5-15); ASPARTATE AMINOTRANSFERASE 68 U/L (10-37); BILIRUBIN,DIRECT 0.2 mg/dL (0.0-0.3); CALCIUM 7.5 mg/dL (8.4-11.0); CARBON DIOXIDE 21 mmol/L (23-29); CHLORIDE 101 mmol/L (98-107); CREATININE 5.45 mg/dL (0.55-1.30); GFR AFRICAN AMERICAN 14 mL/min (>90); GLUCOSE 237 mg/dL (74-106); SODIUM SERUM 139 mmol/L (136-145); TOTAL BILIRUBIN 0.5 mg/dL (0.0-1.0); TOTAL PROTEIN, SERUM 6.8 g/dL (6.4-8.3); UREA NITROGEN, BLOOD 37 mg/dL (8-21)
[2023-03-10 17:23] LABS: GFR NON AFRICAN-AMERICAN 12 mL/min (>90)
[2023-03-10 17:28] LABS: BASOPHILS # (AUTO) 0.1 K/uL (0.0-0.2); BASOPHILS % (AUTO) 1.6 % (0.0-2.0); EOSINOPHILS % (AUTO) 1.2 % (0.0-4.0); HEMATOCRIT 28.6 % (36-54); HEMOGLOBIN 9.6 g/dL (14.0-18.0); LYMPHOCYTES # (AUTO) 1.6 K/uL (1.0-5.5); LYMPHOCYTES % (AUTO) 46.4 % (20.5-51.5); MEAN CORPUSCULAR HEMOGLOBIN 35 pg (27-31); MEAN CORPUSCULAR HGB CONC 34 % (32-36); MEAN CORPUSCULAR VOLUME 103 fL (79.0-98.0); MONOCYTES # (AUTO) 0.1 K/uL (0.0-1.0); MONOCYTES % (AUTO) 3.9 % (1.7-9.3); NEUTROPHILS # (AUTO) 1.6 K/uL (1.8-7.7); NEUTROPHILS % (AUTO) 46.9 % (40.0-70.0); POTASSIUM 2.3 mmol/L (3.5-5.1); RED BLOOD CELL COUNT(AUTO) 2.78 MIL/uL (4.2-6.2); RED CELL DISTRIBUTION WIDTH 18.3 % (9.0-15.0); WHITE BLOOD COUNT (AUTO) 3.4 K/uL (4.8-10.8)
[2023-03-10 17:52] LABS: INR 1.1 (0.80-1.20); PROTHROMBIN TIME 11.6 SECS (9.5-12.5)
[2023-03-10 17:55] LABS: PLATELET COUNT (AUTO) 72 K/uL (130-430)
[2023-03-10] MEDS ORDERED: POTASSIUM CHLORIDE 20 MEQ/PKT PACKET PO ONE (18:00)
[2023-03-10 18:37] LABS: BILIRUBIN,URINE NEGATIVE (NEGATIVE); BLOOD, URINE 2+ (NEGATIVE); CLARITY/URINE SL CLOUDY (CLEAR); COLOR,URINE YELLOW (YELLOW); GLUCOSE,URINE 2+ (NEGATIVE); KETONES,URINE NEGATIVE (NEGATIVE); LEUKOCYTE ESTERASE ,URINE 2+ (NEGATIVE); NITRITE, URINE NEGATIVE (NEGATIVE); PROTEIN URINE 1+ (NEGATIVE); UROBILINOGEN,URINE 0.2 (0.2-1.0)
[2023-03-10 19:06] LABS: BACTERIA,URINE MANY /HPF (None Seen); WBC,URINE 50-80 /HPF (0-3)
[2023-03-10 19:08] LABS: MUCUS,URINE None Seen /LPF (None Seen); URINE AMORPHOUS URATE 3+ /HPF (None Seen)
[2023-03-10 19:25] VITALS: TEMP 97.1
[2023-03-10] MEDS ORDERED: VANCOMYCIN HCL 1.25 GM/NS 250 ML IV ONE (19:30)
[2023-03-10] MEDS ORDERED: CEFEPIME 1 GM in D5W 50 ML IV ONE (19:30)
[2023-03-10] MEDS ORDERED: CEFEPIME 1 GM/VIAL (MAXIPIME) ONE (19:42)
[2023-03-10] MEDS ORDERED: POTASSIUM CHLORIDE 20 MEQ TAB.PRT.SR PO ONE (20:15)
[2023-03-10] MEDS ORDERED: VANCOMYCIN HCL 1000 MG/VIAL IV ONE (20:20)
[2023-03-10] MEDS ORDERED: VANCOMYCIN HCL 500 MG/VIAL IV ONE (20:21)
[2023-03-10 20:34] LABS: BLOOD GAS PCO2 26.4 mmHg (32.0-45.0); BLOOD GAS PH 7.445 (7.350-7.450); BLOOD GAS PO2 118.6 mmHg (75.0-100.0)
[2023-03-10 20:35] LABS: ABG O2 SAT% ESTIMATE 98.5 % (94.0-100.0); BLOOD GAS BASE EXCESS -4.5 mmol/L (-3.0-3.0); BLOOD GAS HCO3 17.7 mmol/L (21.0-27.0)
[2023-03-10] MEDS ORDERED: ONDANSETRON HCL 4 MG/2 ML VIAL IVP ONE (23:00)
[2023-03-10 23:33] VITALS: BP_SYST 168; PULSE 63; RESP 13; O2SAT 100
== END 2023-03-10 23:33 | disposition short-term general hospital (02) ==
LOC: SED 15:27
DX: N39.0 Urinary tract infection, site not specified (principal); R07.9 Chest pain, unspecified; A41.9 Sepsis, unspecified organism; E87.6 Hypokalemia; I12.0 Hypertensive chronic kidney disease with stage 5 chronic kidney disease or end stage renal disease; E11.22 Type 2 diabetes mellitus with diabetic chronic kidney disease; N18.6 End stage renal disease; Z79.899 Other long term (current) drug therapy; Z20.822 Contact with and (suspected) exposure to COVID-19
CPT/HCPCS: 99291; 96365; 71045; 96375; 96367; 87426; 80076; 80048; 81001; 82009; 85025; 85610; 85730; 87040; 87086; 84484; 36415; 93005; 36600; 82803; 96376; 83605; 81000; 81015; J0692; J2405; J3370; J2270